=== PATIENT | male | born 1985 | race Caucasian/White ===

== ENCOUNTER → 2022-01-30 12:06 | Outpatient (BNVA) | payer OTHER, SELFPAY | PROVIDERS: Family Provider Family Medicine; Visit Provider Nurse Practitioner | DX: F12.90 Cannabis use, unspecified, uncomplicated (principal); F11.21 Opioid dependence, in remission; F17.210 Nicotine dependence, cigarettes, uncomplicated; F10.10 Alcohol abuse, uncomplicated; F15.21 Other stimulant dependence, in remission; F20.9 Schizophrenia, unspecified | CPT/HCPCS: 80307 ==

== ENCOUNTER 2022-03-07 08:44 | Emergency (ER) | payer SELFPAY ==
--- NOTE | 2022-03-07 08:59 | ECG_ITS ---
[facility] Test Date: 2022-03-07 Pat Name: Billy Alegre Department: Room: Gender: Male Mainframe Programmer: : [id number] Requested By: Zack Bermudez Order Number: [id number] Fabrice MD: Rafael Henry M.D. Measurements Intervals [place] Rate: 84 P: 74 OK: 144 QRS: 65 QRSD: 113 T: 67 QT: 371 QTc: 441 Interpretive Statements SINUS RHYTHM MODERATE INTRAVENTRICULAR CONDUCTION DELAY [110+ ms QRS DURATION] No previous ECG available for comparison Electronically Signed On 03-07-2022 10:14:59 BEESWAX BLEACHER by Rafael Henry M.D. [id number]
--- NOTE | 2022-03-07 08:59 | XR_ITS ---
WS: [id number] EXAMINATION: XR chest 1V portable [id number] REASON FOR EXAM: dyspnea/cough COMPARISON: 08/15/2012 ORDER DATE: 03/07/2022 9:02 AM TECHNIQUE: A single, portable frontal chest x-ray was obtained. X-RAY FINDINGS: The lungs are clear of infiltrate. There is a new fairly well-circumscribed 10 mm nodule in the later al left midlung There is a calcified granuloma in the medial left lung base unchanged. Pleural spaces are clear. No pleural effusions or pneumothorax. Cardiomediastinal silhouette is normal. No evidence for pulmonary edema. Soft tissue and osseous structures are unremarkable. No tubes or lines are present. XR/XR chest 1V portable [id number] IMPRESSION: New 10 mm nodule lateral left midlung Recommend CT follow-up.
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
[2022-03-07 09:08] LABS: Basophils % 0.5 %; Eosinophils # 0.1 10^3/uL (0.0-0.8); Eosinophils % 3.1 %; Hematocrit 43.3 % (42.0-52.0); Hemoglobin 14.2 g/dL (11.7-16.6); Lymphocytes # 1.9 10^3/uL (0.8-4.8); Mean Corpuscular HGB Conc 32.8 g/dL (30.0-36.0); Mean Corpuscular Hemoglobin 31.3 pg (28.0-34.0); Mean Corpuscular Volume 95.4 fl (80-94); Mean Platelet Volume 9.2 fL (7.4-10.4); Monocytes # 0.2 10^3/uL (0.2-0.9); Monocytes % 4.5 %; Neutrophils # 1.63 10^3/uL (1.8-7.7); Neutrophils % 42.6 %; Nucleated Red Blood Cells % 0 %; Platelet Count 276 10^3/cmm (130-400); Red Blood Count 4.54 10^6/uL (4.1-5.3); Red Cell Distribution Width 11.9 % (12.1-15.1); White Blood Count 3.8 10^3/uL (4.0-10.0)
[2022-03-07] MEDS: sodium chloride 0.9% 1,000 ML 999 ML IV ×2 (09:13→10:59)
[2022-03-07] MEDS: LORazepam 2 mg/mL INJ 1 mL IVP (09:14)
[2022-03-07] MEDS: ondansetron 2 mg/ML SDV 2 mL 4 MG IVP (09:14)
[2022-03-07 09:21] VITALS: BP 127/93; PULSE 89; RESP 14; O2SAT 90
[2022-03-07 09:24] LABS: Alanine Aminotransferase 22 U/L (0-41); Albumin Level 3.6 g/dL (3.5-5.2); Alkaline Phosphatase 55 U/L (40-130); Anion Gap 14.7 (5-19); Aspartate Amino Transferase 28 U/L (0-40); Blood Urea Nitrogen 11 mg/dL (6-20); Calcium 8.9 mg/dL (8.5-10.5); Carbon Dioxide 27 mmol/L (22-29); Chloride 102 mmol/L (98-107); Globulin 2.5 g/dL (1.3-4.6); Glomerular Filtration Rate 75.7 mL/min (90-130); Glucose 236 mg/dL (65-115); Osmolality Calculated 295 mOsm/kg (285-295); Potassium 4.7 mmol/L (3.5-5.1); Sodium 139 mmol/L (136-145); Total Bilirubin 0.2 mg/dL (0.15-1.2); Total Protein 6.1 g/dL (6.6-8.7)
[2022-03-07 09:40] LABS: Creatine Phosphokinase 604 U/L (39-308)
[2022-03-07 10:00] VITALS: BP 132/104; PULSE 93; RESP 12; O2SAT 100
[2022-03-07 10:30] VITALS: BP 143/103; PULSE 96; RESP 14; O2SAT 94
[2022-03-07 10:59] VITALS: BP 143/103
[2022-03-07] MEDS: cloNIDine 0.1 mg Tablet PO (10:59)
[2022-03-07 11:00] VITALS: BP 150/99; PULSE 94; RESP 17; O2SAT 91
[2022-03-07 12:00] VITALS: BP 126/88; PULSE 107; RESP 16; O2SAT 97
[2022-03-07 12:21] LABS: Add Urine Microscopic? NO; Charge for UA Resulting for Rev
[2022-03-07 12:43] LABS: Bilirubin Urine Neg (Negative); Blood Urine Neg (Negative); Glucose Urine UA 2+ (Normal); Ketones Urine Negative (Negative); Leukocyte Esterase Urine Negative (Negative); Nitrate Urine Negative (Negative); Protein Urine Neg (Negative); Urine Appearance Clear (CLEAR); Urine Color Yellow (Yellow); Urobilinogen Urine Norm (Negative); pH Urine 6 (5-7)
== END 2022-03-07 13:16 | disposition home or self-care (01) ==
PROVIDERS: Emergency Provider Family Medicine
DX: T40.411A Poisoning by fentanyl or fentanyl analogs, accidental (unintentional), initial encounter (principal); F15.10 Other stimulant abuse, uncomplicated; F17.210 Nicotine dependence, cigarettes, uncomplicated
CPT/HCPCS: 71045; 80053; 81003; 82550; 85025; 93005; 96361; 96374; 96375; 99285; J2060; J2405; J7030